=== PATIENT | male | born 1955 | race Caucasian/White ===

== ENCOUNTER 2017-11-07 23:16 | Emergency (ER) | payer SELFPAY ==
[~2017-11-07] VITALS: Ht 182.9 cm; Wt 96.0 kg
[2017-11-07 23:25] VITALS: Ht 182.9 cm; Wt 96.0 kg
[2017-11-08] MEDS ORDERED: FLUORESCEIN STRIP ONE (00:16)
[2017-11-08] MEDS ORDERED: NICARDipine HCL 30 MG CAPSULE PO ONE (00:30)
--- NOTE | 2017-11-08 00:40 | RADRPT ---
PROCEDURE: CT Brain without contrast. CLINICAL INDICATION: Headache. TECHNIQUE: A CT of the brain was performed utilizing axial imaging from the skull base through the vertex without IV contrast. Multiplanar reformatted images were made. Images were reviewed on a [employer] workstation. The CTDIvol is 43.58 mGy and the DLP is 810.25 mGycm. DICOM images are available. One or more of the following dose reduction techniques were utilized: 1.) Automated exposure control 2.) Adjustment of the mA +/- kV according to patient's size 3.) Use of iterative reconstruction technique. COMPARISON: None FINDINGS: There is no intracranial hemorrhage, mass effect, or midline shift. No extra-axial fluid collection is seen. The ventricles and sulci are normal in size and configuration. The density of the brain is normal, and the villa white matter differentiation appears well-preserved. The visualized paranasal sinuses and osseous structures are grossly unremarkable. IMPRESSION: 1. No evidence of acute intracranial pathology. 2. The brain is normal in appearance. Physician Kacy Date Time Electronically viewed and signed by Physician Kacy on 11/08/2017 00:40 RS/
[2017-11-08] MEDS ORDERED: MED4DP PO (01:15)
[2017-11-08] MEDS ORDERED: VALA10004 PO (01:15)
[2017-11-08] MEDS ORDERED: AMLO-218 PO (01:15)
[2017-11-08] MEDS ORDERED: TRIF7.5D4 LEFT EYE (01:15)
[2017-11-08 01:30] VITALS: BP 156/88; PULSE 71; RESP 16; TEMP 98.2
--- NOTE | 2017-11-08 01:30 | ERD ---
ER Documentation Chief Complaint Chief Complaint hypertension w/ headache today, HPI This is a 62-year-old male who is here for headache. The patient saw his doctor today because he has a rash on the left side of his face which is on the left forehead that tracks down to the left eye and left inside of the nose but there is no Zavala sign. He says he feels like his blood pressure is high although he is not on blood pressure medication. He has a dull mild diffuse headache and no nausea or vomiting. No focal neurological complaints no changes in his vision or pain when he moves his eye there is no eye swelling. His doctor did not do an ice stain and discharged him with NSAIDs, Neosporin eye ointment, Z-Rohit ROS All systems reviewed and are negative except as per history of present illness. Medications Home Meds Active Scripts Amlodipine Besylate* (Norvasc*) 10 Mg Tablet, 10 MG PO DAILY, #30 TAB Prov:TREE JOHNSONSTOLOS A. DO 11/08/17 Methylprednisolone* (Medrol* DOSE PACK) 4 Mg/Dose-Pack Tab.ds.pk, 4 MG PO . DIRECTED, #1 PACKET Prov:EDGARDOOSTREESTOLOS A. DO 11/08/17 Valacyclovir HCl (Valtrex) 1,000 Mg Tablet, 1000 MG PO TID for 7 Days, TAB Prov:LEKKOS,APOSTOLOS A. DO 11/08/17 Trifluridine* (Viroptic*) 7.5 Ml Drops, 1 DROP LEFT EYE Q4H, #1 EA Prov:LEVIRGILOSTREESTOLOS A. DO 11/08/17 Allergies Allergies: Coded Allergies: No Known Allergy (Unverified , 11/07/17) PMhx/Soc History of Surgery: Yes (Appendix) Anesthesia Reaction: No Hx Neurological Disorder: No Hx Respiratory Disorders: No Hx Cardiac Disorders: No Hx Psychiatric Problems: No Hx Miscellaneous Medical Probl: No Hx Alcohol Use: No Hx Substance Use: No Hx Tobacco Use: Yes (Quit ciarettes 26 years ago) Smoking Status: Former smoker FmHx Family History: No coronary disease Physical Exam Vitals Vital Signs Date Time Temp Pulse Resp B/P Pulse Ox O2 Delivery O2 Flow Rate FiO2 11/08/17 00:00 98.2 80 18 188/81 99 Room Air 11/07/17 23:25 98.2 66 20 206/103 99 Physical Exam Const: Well-developed, well-nourished Head: Atraumatic, normocephalic Eyes: Normal ConjunctivaR, the left conjunctiva is injected with watery eye there is no pain with movement, the eye was stained and there is no fluorescein uptake indicating viral infection of the eye PERRLA, EOMI, normal sclera, no nystagmus ENT: Normal External Ears, Nose and Mouth, moist mucus membranes. Neck: Full range of motion. No meningismus, no lymphadenopathy. Resp: Clear to auscultation bilaterally, no wheezing, rhonchi, rales Cardio: Regular rate and rhythm, no murmurs, S1 S2 present Abd: Soft, non tender x 4, non distended. Normal bowel sounds, no guarding or rebound, no pulsitile abdominal masses or bruits Skin: No petechiae, left forehead and warning on the inside part of the outer left nose is a red rash that is raised red lesions of varying size from a few millimeters to maybe 10 mm across there are no clear vesicles with mild tenderness, no ecchymosis , no maculopapular rash Back: No midline or flank tenderness Ext: No cyanosis, or edema, FROM x 4, normal inspection, neurovascularly intact x 4 Neur: Awake and alert, STR 5/5 x 4, sensation intact x 4, no focal findings, cerebellum intact Psych: Normal Mood and Affect Results 24 hrs Current Medications Medications (Trade) Dose Ordered Sig/Adan Route PRN Reason Start Time Stop Time Status Last Admin Dose Admin Nicardipine HCl (Cardene) 30 mg ONCE ONCE PO 11/08/17 00:30 11/08/17 00:31 DC 11/08/17 00:28 Fluorescein Sodium (Ymapx-X-Jojvq) 1 strip STK-MED ONCE .ROUTE 11/08/17 00:16 11/08/17 00:17 DC Procedures/MDM PROCEDURE: CT Brain without contrast. CLINICAL INDICATION: Headache. TECHNIQUE: A CT of the brain was performed utilizing axial imaging from the skull base through the vertex without IV contrast. Multiplanar reformatted images were made. Images were reviewed on a [employer] workstation. The CTDIvol is 43.58 mGy and the DLP is 810.25 mGycm. DICOM images are available. One or more of the following dose reduction techniques were utilized: 1.) Automated exposure control 2.) Adjustment of the mA +/- kV according to patient's size 3.) Use of iterative reconstruction technique. COMPARISON: None FINDINGS: There is no intracranial hemorrhage, mass effect, or midline shift. No extra- axial fluid collection is seen. The ventricles and sulci are normal in size and configuration. The density of the brain is normal, and the villa white matter differentiation appears well-preserved. The visualized paranasal sinuses and osseous structures are grossly unremarkable. IMPRESSION: 1. No evidence of acute intracranial pathology. 2. The brain is normal in appearance. Physician Kacy Date Time Electronically viewed and signed by Physician Kacy on 11/08/2017 00:40 RS/ CC: SAMEERA JOHNSON DO The patient's lesions follow the dermatome pattern but it does not look clearly vesicular however is likely the start of shingles. Patient's blood pressure is controlled with Cardene. We will treat with Viroptic eyedrops, Valtrex, Norvasc, prednisone Departure Diagnosis: Primary Impression: Shingles Herpes zoster complications: with ocular involvement Herpes zoster ocular complication detail: conjunctivitis Qualified Code: B02.31 - Herpes zoster conjunctivitis Additional Impression: Hypertension Hypertension type: unspecified Qualified Code: I10 - Hypertension, unspecified type Condition: Stable Patient Instructions: High Blood Pressure (Hypertension), Shingles (Herpes Zoster) SAMEERA JOHNSON DO Nov 08, 2017 01:30
[2017-11-09] MEDS ORDERED: RANI150T9 PO (01:07)
[2017-11-09] MEDS ORDERED: SUCR1TAB56 PO (01:07)
== END 2017-11-08 01:42 | disposition home or self-care (01) ==
LOC: E/R 23:16
DX: B02.31 Zoster conjunctivitis (principal); I10 Essential (primary) hypertension; Z87.891 Personal history of nicotine dependence
CPT/HCPCS: 70450

== ENCOUNTER 2017-11-08 21:16 | Emergency (ER) | payer SELFPAY ==
[~2017-11-08] VITALS: Ht 182.9 cm; Wt 96.9 kg
[~2017-11-08 21:16] MED LIST: AMLO-218 PO; MED4DP PO; TRIF7.5D4 LEFT EYE; VALA10004 PO
[2017-11-08 21:24] VITALS: Ht 182.9 cm; Wt 96.9 kg
[2017-11-08] MEDS ORDERED: FAMOTIDINE 20 MG INJ IV STA (22:34)
[2017-11-08] MEDS ORDERED: SOD CHLORIDE 0.9% 1,000 ML IV STA (22:34)
[2017-11-08] MEDS ORDERED: ONDANSETRON 4 MG INJ IV STA (22:34)
[2017-11-08] MEDS ORDERED: morphine 4 MG/ML VIAL IV STA (22:34)
[2017-11-08 23:03] LABS: BASOPHILS % 0.5 % (0.0-2.0); EOSINOPHILS % 0.1 % (0.0-7.0); LYMPHOCYTES # 0.7 10^3/ul (0.8-2.9); LYMPHOCYTES % 8.9 % (15.0-51.0); MEAN CORPUSCULAR HEMOGLOBIN 30.8 pg (29.0-33.0); MEAN CORPUSCULAR HGB CONC 35.7 g/dl (32.0-37.0); MEAN CORPUSCULAR VOLUME 86.2 fl (82.0-101.0); MEAN PLATELET VOLUME 10.8 fl (7.4-10.4); MONOCYTE # 0.5 10^3/ul (0.3-0.9); MONOCYTES % 6.2 % (0.0-11.0); NEUTROPHIL # 6.1 10^3/ul (1.6-7.5); NEUTROPHILS % 84.2 % (39.0-77.0); PLATELET COUNT 177 10^3/UL (140-415); RED BLOOD COUNT 4.87 10^6/ul (4.70-6.10); RED CELL DISTRIBUTION WIDTH 11.5 % (11.5-14.5); WHITE BLOOD COUNT 7.3 10^3/ul (4.8-10.8)
[2017-11-08 23:14] LABS: ADD UMIC YES; UR ASCORBIC ACID NEGATIVE (NEGATIVE); UR BILIRUBIN (Dip) NEGATIVE (NEGATIVE); UR BLOOD (Dip) NEGATIVE (NEGATIVE); UR CLARITY CLEAR (CLEAR); UR COLOR YELLOW (YELLOW); UR GLUCOSE (Dip) 3+ mg/dL (NEGATIVE); UR KETONES (Dip) 2+ mg/dL (NEGATIVE); UR LEUKOCYTE ESTERASE (Dip) NEGATIVE Leu/ul (NEGATIVE); UR NITRITE (Dip) NEGATIVE (NEGATIVE); UR RBC 2 /HPF (0-5); UR SPECIFIC GRAVITY (Dip) 1.033 (1.003-1.030); UR TOTAL PROTEIN (Dip) 2+ mg/dl (NEGATIVE); UR UROBILINOGEN (Dip) NEGATIVE (NEGATIVE)
--- NOTE | 2017-11-08 23:19 | RADRPT ---
PROCEDURE: CT Abdomen and pelvis without contrast. CLINICAL INDICATION: Abdominal pain. TECHNIQUE: CT scan of the abdomen and pelvis was performed on a multi-detector high-resolution CT scanner. Contiguous axial images were obtained from the lung bases to the ischial tuberosities wit hout intravenous contrast. Coronal and sagittal reformatted images were also obtained. Images were reviewed on the PACS workstation. DICOM images are available. One or more of the following dose reduction techniques were used: - Automated exposure control. - Adjustment of the mA and/or kV according to patient size. - Use of iterative reconstruction technique. Exam CTD/vol = 15.31 mGy. Total exam DLP = 1045.58 mGy-cm. COMPARISON: None. FINDINGS: Evaluation of the lung bases demonstrates mild bibasilar atelectasis. Abdomen: The liver is normal in size. There is a 9 mm hypodense lesion within the right lobe of th e liver which is too small to further characterize. There is no dilatation of the biliary tree. The gallbladder is not distended. The spleen, pancreas and bilateral adrenal glands are within normal limits. Bilateral kidneys are normal in size with no contour deforming mass identified. There is n o radiopaque renal or ureteral calculus identified. There is no hydronephrosis or hydroureter. The re is no retroperitoneal adenopathy. The abdominal aorta is of normal caliber with scattered athero sclerotic calcifications. There is moderate retained stool within the colon. There is no bowel obstruction or free air. The a ppendix is not visualized. There are no pericecal inflammatory changes to suggest appendicitis. The re is no diverticulosis or diverticulitis. There is no ascites. Pelvis: The bladder is unremarkable. There are bilateral small inguinal hernias containing fat. T he prostate and seminal vesicles are within normal limits. There is no significant pelvic adenopath y or free fluid. Evaluation of the osseous structures demonstrates no suspicious lytic or blastic lesion. There are d egenerative changes of the spine. IMPRESSION: No acute abnormality identified within the abdomen and pelvis. Moderate retained stool within the colon. Bilateral small inguinal hernias containing fat. Subcentimeter hypodense lesion within the right lobe of the liver could represent a cyst, although t oo small to further characterize. Vascular calcifications reflective of atherosclerosis. Degenerative changes of the spine. .Jan Sharma MD, MD Date Time Electronically viewed and signed by .Jan Sharma MD, MD on 11/08/2017 23:19 .T/
[2017-11-08 23:22] LABS: ALANINE AMINOTRANSFERASE 41 IU/L (13-69); ALBUMIN 4.1 g/dl (3.3-4.9); ALBUMIN/GLOBULIN RATIO 1.24; ALKALINE PHOSPHATASE 72 IU/L (42-121); ANION GAP 17 (8-16); ASPARTATE AMINO TRANSFERASE 26 IU/L (15-46); BLOOD UREA NITROGEN 15 mg/dl (7-20); CALCIUM 9.3 mg/dl (8.4-10.2); CARBON DIOXIDE 23 mmol/L (21-31); CHLORIDE 94 mmol/L (97-110); CREATININE 0.75 mg/dl (0.61-1.24); GLUCOSE 284 mg/dl (70-220); POTASSIUM 4.1 mmol/L (3.5-5.1); SODIUM 130 mmol/L (135-144); TOTAL PROTEIN 7.4 g/dl (6.1-8.1)
--- NOTE | 2017-11-08 23:32 | RADRPT ---
PROCEDURE: Chest. CLINICAL INDICATION: Chest pain. TECHNIQUE: Single frontal view of the chest was obtained. COMPARISON: None. FINDINGS: The cardiac silhouette is magnified. The aortic arch is unremarkable. There is no focal consolidat ion, vascular congestion or pleural effusion. There is no pneumothorax. IMPRESSION: No evidence for active cardiopulmonary disease. .Jan Sharma MD, MD Date Time Electronically viewed and signed by .Jan Sharma MD, MD on 11/08/2017 23:32 .T/
[2017-11-08 23:36] LABS: TROPONIN-I < 0.012 ng/ml (0.00-0.12)
--- NOTE | 2017-11-09 01:03 | ERD ---
ER Documentation Chief Complaint Chief Complaint epigastric pains w/vomiting x 4days, was here last Thursday x shingles HPI this is a 62-year-old male with epigastric pains vomiting 4 days. Patient was diagnosed as shingles last Thursday. The past 4 days and to 3 episodes of nonbilious vomiting. Epigastric abdominal pain which is mild to moderate intensity. No blood in the vomit. No other current complaints. No fevers no chills. No other current issues. ROS All systems reviewed and are negative except as per history of present illness. Medications Home Meds Active Scripts Amlodipine Besylate* (Norvasc*) 10 Mg Tablet, 10 MG PO DAILY, #30 TAB Prov:LEVIRGILOS,TREESTOLOS A. DO 11/08/17 Methylprednisolone* (Medrol* DOSE PACK) 4 Mg/Dose-Pack Tab.ds.pk, 4 MG PO . DIRECTED, #1 PACKET Prov:LEKKOS,APOSTOLOS A. DO 11/08/17 Valacyclovir HCl (Valtrex) 1,000 Mg Tablet, 1000 MG PO TID for 7 Days, TAB Prov:LEKKOS,APOSTOLOS A. DO 11/08/17 Trifluridine* (Viroptic*) 7.5 Ml Drops, 1 DROP LEFT EYE Q4H, #1 EA Prov:LEKKOS,APOSTOLOS A. DO 11/08/17 Allergies Allergies: Coded Allergies: No Known Allergy (Unverified , 11/07/17) PMhx/Soc History of Surgery: Yes (Appendix) Anesthesia Reaction: No Hx Neurological Disorder: No Hx Respiratory Disorders: No Hx Cardiac Disorders: Yes (HTN) Hx Psychiatric Problems: No Hx Miscellaneous Medical Probl: No Hx Alcohol Use: No Hx Substance Use: No Hx Tobacco Use: Yes (Quit ciarettes 26 years ago) Smoking Status: Current every day smoker Physical Exam Vitals Vital Signs Date Time Temp Pulse Resp B/P Pulse Ox O2 Delivery O2 Flow Rate FiO2 11/09/17 00:00 64 18 138/72 100 Room Air 11/08/17 21:24 99.5 79 20 182/88 97 Physical Exam Const: [] Head: Atraumatic Eyes: Normal Conjunctiva ENT: Normal External Ears, Nose and Mouth. Neck: Full range of motion..~ No meningismus. Resp: Clear to auscultation bilaterally Cardio: Regular rate and rhythm, no murmurs Abd: Soft, non tender, non distended. Normal bowel sounds Skin: No petechiae or rashes Back: No midline or flank tenderness Ext: No cyanosis, or edema Neur: Awake and alert Psych: Normal Mood and Affect Result Diagram: 11/08/17224911/08/172249 Results 24 hrs Laboratory Tests Test 11/08/17 22:34 11/08/17 22:50 Urine Color YELLOW Urine Clarity CLEAR Urine pH 6.0 Urine Specific [place] 1.033 Urine Ketones 2+mg/dL Urine Nitrite NEGATIVEmg/dL Urine Bilirubin NEGATIVEmg/dL Urine Urobilinogen NEGATIVEmg/dL Urine Leukocyte Esterase NEGATIVELeu/ul Urine Microscopic RBC 2/HPF Urine Microscopic WBC 2/HPF Urine Hemoglobin NEGATIVEmg/dL Urine Glucose 3+mg/dL Urine Total Protein 2+mg/dl White Blood Count 7.310^3/ul Red Blood Count 4.8710^6/ul Hemoglobin 15.0g/dl Hematocrit 42.0% Mean Corpuscular Volume 86.2fl Mean Corpuscular Hemoglobin 30.8pg Mean Corpuscular Hemoglobin Concent 35.7g/dl Red Cell Distribution Width 11.5% Platelet Count 91534^3/UL Mean Platelet Volume 10.8fl Neutrophils % 84.2% Lymphocytes % 8.9% Monocytes % 6.2% Eosinophils % 0.1% Basophils % 0.5% Nucleated Red Blood Cells % 0.0/100WBC Neutrophils # 6.110^3/ul Lymphocytes # 0.710^3/ul Monocytes # 0.510^3/ul Eosinophils # 0.010^3/ul Basophils # 0.010^3/ul Nucleated Red Blood Cells # 0.010^3/ul Sodium Level 130mmol/L Potassium Level 4.1mmol/L Chloride Level 94mmol/L Carbon Dioxide Level 23mmol/L Anion Gap 17 Blood Urea Nitrogen 15mg/dl Creatinine 0.75mg/dl Glucose Level 284mg/dl Calcium Level 9.3mg/dl Total Bilirubin 1.0mg/dl Direct Bilirubin 0.00mg/dl Indirect Bilirubin 1.0mg/dl Aspartate Amino Transf (AST/SGOT) 26IU/L Alanine Aminotransferase (ALT/SGPT) 41IU/L Alkaline Phosphatase 72IU/L Troponin I < 0.012ng/ml Total Protein 7.4g/dl Albumin 4.1g/dl Globulin 3.30g/dl Albumin/Globulin Ratio 1.24 Lipase 42U/L Current Medications Medications (Trade) Dose Ordered Sig/Adan Route PRN Reason Start Time Stop Time Status Last Admin Dose Admin Sodium Chloride (NS) 1,000 ml @ 1,000 mls/hr Q1H STAT IV 11/08/17 22:34 11/08/17 23:33 DC 11/08/17 22:41 Morphine Sulfate (morphine) 4 mg ONCE STAT IV 11/08/17 22:34 11/08/17 22:35 DC 11/08/17 22:42 Ondansetron HCl (Zofran Inj) 4 mg ONCE STAT IV 11/08/17 22:34 11/08/17 22:35 DC 11/08/17 22:41 Famotidine (Pepcid Iv) 20 mg ONCE STAT IV 11/08/17 22:34 11/08/17 22:35 DC 11/08/17 22:41 Procedures/MDM EKG: Rate/Rhythm: [Normal Sinus Rhythm] QRS, ST, T-waves: [No changes consistent w/ acute ischemia] Impression: [No evidence of ischemia or arrhythmia] Chest X-ray 1V Interpreted by me: Soft Tissue: No acute abnormalities Bones: No acute abnormalities Mediastinum/Cardiac Silhouette/Lungs: [No acute abnormalities] Medical decision-makin-year-old male with epigastric abdominal pain consistent with a gastritic-like nature. At this point patient feels much better. Stable for outpatient management patient be discharged home. Follow- up in 8 hours for serial abdominal exams. No evidence of surgical abdomen on multiple serial abdominal exams which were negative. Departure Diagnosis: Primary Impression: Epigastric pain Condition: Stable MELISSA HOLMAN Nov 09, 2017 01:03
[2017-11-09] MEDS ORDERED: SUCR1TAB56 PO (01:07)
[2017-11-09] MEDS ORDERED: RANI150T9 PO (01:07)
[2017-11-09 02:22] VITALS: BP 166/72; PULSE 86; RESP 16; TEMP 98.6
== END 2017-11-09 02:35 | disposition home or self-care (01) ==
LOC: E/R 21:16
DX: R10.13 Epigastric pain (principal); I10 Essential (primary) hypertension; F17.210 Nicotine dependence, cigarettes, uncomplicated
CPT/HCPCS: 36415; 71010; 74176; 80053; 81001; 83690; 84484; 85025; 96374; 96375; 99285; J2270; J2405; J7030; 93005